=== PATIENT | female | born 1970 | race Caucasian/White ===

== ENCOUNTER 2017-03-18 09:01 | Day surgery (SDC) | payer MEDICARE ==
[~2017-03-18 09:01] MED LIST: ALBUTEROL0.63 MG/1 IH; ALBUTEROL0.63 MG/1 INH; AUGMENTIN 875-1 EAC2 PO; BACTRIM DS TAB1 EAC2 PO; BIPAP; DOXYCYCLINE MO100 M2 PO; GABAPENTIN600 M2 PO; HYDRALAZINE HCL10 M1 PO; HYDRALAZINE HCL50 M1 PO; KLOR-CON 1010 ME1 PO; LASIX80 M1 PO; MOBIC15 M2 PO; MORPHINE SULFAT30 M8 PO; MS CONTIN30 M1 PO; MUCINEX D ER 61 EACH PO; MUCINEX D ER T1 EAC2 PO; NEURONTIN600 M1 PO; OLEPTRO ER150 M1 PO; OXYGEN INH; PREDNISONE20 M1 PO; PRINIVIL20 M1 PO; PROTONIX40 M2 PO; PULMICORT0.5 MG/22 INH; SYNTHROID75 MC1 PO; TIROSINT75 MC1 PO; TRAZODONE HCL150 M1 PO; VENLAFAXINE HC150 M2 PO; VIBRAMYCIN100 M1 PO; VITAMIN C1000 M1 PO; VITAMIN D-32000 UNI3 PO; VITAMIN D31000 UNI3 PO; XALATAN2.5 M1 EACH EYE; XANAX1 M1 PO; ZITHROMAX250 M1 PO; ZOFRAN4 M2 PO; [UNRECOGNIZED DRUG - REMARK] PO
[2017-03-18 10:26] LABS: ANION GAP 9 mmol/L (0-20); BLOOD UREA NITROGEN 14 mg/dl (6-24); CALCIUM 8.8 mg/dl (8.5-10.5); CARBON DIOXIDE-VENOUS 34 mmol/L (22-32); CHLORIDE 100 mmol/l (96-110); CREATININE 0.97 mg/dl (0.50-1.10); GLUCOSE 88 mg/dL (70-110); POTASSIUM 4.2 mmol/L (3.7-5.1); SODIUM 139 mmol/L (135-145); eGFR VALUE FOR BLACK 81 mL/Min
[2017-04-07] MEDS ORDERED: EFFEXOR XR150 M1 PO (15:09)
== END 2017-03-18 12:35 ==
LOC: ENDOS 09:01 → SHSB 09:04 → ENDOS 10:25
PROVIDERS: Specialist
PROC: 0DBN8ZX Excision of Sigmoid Colon, Via Natural or Artificial Opening Endoscopic, Diagnostic (ICD-10-PCS; principal; 2017-03-18)
PROC: 0DBL8ZX Excision of Transverse Colon, Via Natural or Artificial Opening Endoscopic, Diagnostic (ICD-10-PCS; 2017-03-18)
DX: D12.3 Benign neoplasm of transverse colon (principal); K63.5 Polyp of colon; K57.30 Diverticulosis of large intestine without perforation or abscess without bleeding; K64.8 Other hemorrhoids; I10 Essential (primary) hypertension; E03.9 Hypothyroidism, unspecified; F41.9 Anxiety disorder, unspecified; F31.9 Bipolar disorder, unspecified; M08.00 Unspecified juvenile rheumatoid arthritis of unspecified site; J44.9 Chronic obstructive pulmonary disease, unspecified; I27.2 Other secondary pulmonary hypertension; F17.210 Nicotine dependence, cigarettes, uncomplicated; Z87.19 Personal history of other diseases of the digestive system; Z88.8 Allergy status to other drugs, medicaments and biological substances; Z90.49 Acquired absence of other specified parts of digestive tract; Z98.890 Other specified postprocedural states